=== PATIENT | male | born 2000 ===

== ENCOUNTER 2018-01-31 19:24 | Emergency (ER) | payer OTHER ==
[~2018-01-31] VITALS: Ht 167.6 cm; Wt 64.0 kg
[2018-01-31 19:26] VITALS: TEMP 36.5; Ht 167.6 cm; Wt 64.0 kg
--- NOTE | 2018-01-31 19:39 | EMERGENCY ROOM VISIT NOTE ---
History Report prepared by Ze: Rafael Leslie Under the Supervision of: Dr. Nicky Aguilar D.O. First contact with patient: 19:26 Chief Complaint: ALCOHOL OVERDOSE Stated Complaint: ALCOHOL History of Present Illness The patient is a 17 year old male who presents to the Emergency Room with complaints of persistent vomiting beginning [employer]. The nurse states the patient was out drinking since 1300. They report he was drinking vodka and was assisted home by friends. Friends are present at bedside, were directed to additional waiting room, but do state patient was with them while he was drinking, and they did not witness any trauma. Nursing staff notes the patient's roommates brought him to the ED because he could not walk, was coming in and out of consciousness, and vomiting. The patient states he has a mild headache and vomited three times. He denies headache, abdominal pain, trouble breathing, chest pain, blood in his vomit, falling down, and trauma. HPI limited secondary to the patient's alcohol intoxication. Source of History: patient, nursing staff History Limited By: intoxication Review of Systems ROS limited secondary to the patient's alcohol intoxication. Past Medical & Surgical PMHx unobtainable secondary to the patient's alcohol intoxication. Family History FHx unobtainable secondary to the patient's alcohol intoxication. Social History Smoking Status: Never Smoker Alcohol Use: heavy Marital Status: single Housing Status: lives with roommate Occupation Status: [employer] student Current/Historical Medications Unable to Obtain Active Prescriptions or Reported Meds Physical Exam Vital Signs Date Time Temp Pulse Resp B/P (MAP) Pulse Ox O2 Delivery O2 Flow Rate FiO2 01/31/18 22:35 115 24 119/77 100 01/31/18 21:40 97 22 01/31/18 21:30 108/69 01/31/18 21:10 65 17 97 Room Air 01/31/18 21:00 109/62 01/31/18 20:40 63 16 99 Room Air 01/31/18 20:35 66 18 99 Room Air 01/31/18 20:30 113/68 01/31/18 20:05 53 17 99 Room Air 01/31/18 20:00 112/68 01/31/18 19:54 52 18 99 Room Air 01/31/18 19:42 66 01/31/18 19:34 131/71 01/31/18 19:26 36.5 90 18 119/74 98 Room Air Physical Exam GENERAL: alert, intoxicated appearing, well nourished, emesis on shirt. Smells of EtOH. EYE EXAM: normal conjunctiva, PERRL and EOM's grossly intact OROPHARYNX: no exudate, no erythema, lips, buccal mucosa, and tongue normal and mucous membranes are moist NECK: supple, no nuchal rigidity, no adenopathy, non-tender LUNGS: Clear to auscultation. Normal chest wall mechanics HEART: no murmurs, S1 normal and S2 normal ABDOMEN: abdomen soft, non-tender, normo-active bowel sounds, no masses, no rebound or guarding. BACK: Back is symmetrical on inspection and there is no deformity, no midline tenderness, no CVA tenderness. SKIN: no rashes and no bruising UPPER EXTREMITIES: upper extremities are grossly normal. LOWER EXTREMITIES: No pitting edema. NEURO EXAM: Normal sensorium, cranial nerves II-XII grossly intact, normal speech, no gross weakness of arms, no gross weakness of legs. Medical Decision & Procedures Laboratory Results 01/31/18 19:38 Red Blood Count 4.87, Mean Corpuscular Volume 88.9, Mean Corpuscular Hemoglobin 30.8, Mean Corpuscular Hemoglobin Concent 34.6, Mean Platelet Volume 10.7, Neutrophils (%) (Auto) 71.3, Lymphocytes (%) (Auto) 20.9, Monocytes (%) (Auto) 5.5, Eosinophils (%) (Auto) 1.8, Basophils (%) (Auto) 0.4, Neutrophils # (Auto) 5.04, Lymphocytes # (Auto) 1.48, Monocytes # (Auto) 0.39, Eosinophils # (Auto) 0.13, Basophils # (Auto) 0.03 01/31/18 19:38 Test 01/31/18 19:38 White Blood Count 7.08 K/uL (4.8-10.8) Red Blood Count 4.87 M/uL (4.7-6.1) Hemoglobin 15.0 g/dL (14.0-18.0) Hematocrit 43.3 % (42-52) Mean Corpuscular Volume 88.9 fL (80-100) Mean Corpuscular Hemoglobin 30.8 pg (25-34) Mean Corpuscular Hemoglobin Concent 34.6 g/dl (32-36) Platelet Count 171 K/uL (130-400) Mean Platelet Volume 10.7 fL (7.4-10.4) Neutrophils (%) (Auto) 71.3 % Lymphocytes (%) (Auto) 20.9 % Monocytes (%) (Auto) 5.5 % Eosinophils (%) (Auto) 1.8 % Basophils (%) (Auto) 0.4 % Neutrophils # (Auto) 5.04 K/uL (1.4-6.5) Lymphocytes # (Auto) 1.48 K/uL (1.2-3.4) Monocytes # (Auto) 0.39 K/uL (0.11-0.59) Eosinophils # (Auto) 0.13 K/uL (0-0.5) Basophils # (Auto) 0.03 K/uL (0-0.2) RDW Standard Deviation 41.6 fL (36.4-46.3) RDW Coefficient of Variation 12.8 % (11.5-14.5) Immature Granulocyte % (Auto) 0.1 % Immature Granulocyte # (Auto) 0.01 K/uL (0.00-0.02) Anion Gap 10.0 mmol/L (3-11) Est Creatinine Clear Calc Drug Dose 110.5 ml/min Estimated GFR () 130.6 Estimated GFR (Non- 112.7 BUN/Creatinine Ratio 14.3 (10-20) Calcium Level 8.4 mg/dl (8.5-10.1) Total Bilirubin 1.5 mg/dl (0.2-1) Aspartate Amino Transf (AST/SGOT) 17 U/L (15-37) Alanine Aminotransferase (ALT/SGPT) 20 U/L (12-78) Alkaline Phosphatase 74 U/L (45-117) Total Protein 8.1 gm/dl (6.4-8.2) Albumin 4.3 gm/dl (3.4-5.0) Globulin 3.8 gm/dl (2.5-4.0) Albumin/Globulin Ratio 1.1 (0.9-2) Ethyl Alcohol mg/dL 261.0 mg/dl (0-3) Medications Administered Medications (Trade) Dose Ordered Sig/Jackeline Route Start Time Stop Time Status Last Admin Dose Admin Ondansetron HCl (Zofran Odt) 4 mg ONE ONCE PO 01/31/18 19:45 01/31/18 19:46 DC 01/31/18 19:40 4 MG ED Course 1927: The patient was evaluated in room C10. A complete history and physical exam was performed. 1944: Ordered Ondansetron HCl 4mg PO 2211: Upon reevaluation, the patient is feeling better. He is awake, alert, and trying to contact friends. Denies headaches, abdominal pain, chest pain, trouble breathing. States he is no longer nauseated, is tolerating sips of juice and crackers at bedside. I discussed the findings and the treatment plan with the patient. He verbalizes agreement and understanding. The patient will be discharged home if he can find a sober ride. Medical Decision Differential diagnosis includes etiologies such as alcohol intoxication, toxicologic, infection, hypoglycemia, electrolyte abnormalities, cardiac sources , intracerebral event, neurologic, as well as others were entertained. Medication Reconcilliation Current Medication List: was personally reviewed by me Blood Pressure Screening Patient's blood pressure: Normal blood pressure Blood pressure disposition: Did not require urgent referral Impression Primary Impression: Alcoholic intoxication Additional Impression: Vomiting Scribe Attestation The scribe's documentation has been prepared under my direction and personally reviewed by me in its entirety. I confirm that the note above accurately reflects all work, treatment, procedures, and medical decision making performed by me. Departure Information Dispostion Home / Self-Care Prescriptions Unable to Obtain Active Prescriptions or Reported Meds Forms HOME CARE DOCUMENTATION FORM, IMPORTANT VISIT INFORMATION Patient Instructions My [facility] Additional Instructions Please do not drink alcohol until you are legally able at age 21. When you do drink, please drink responsibly in a safe location. Do not drink and drive. Please sip clear liquids at frequent intervals to stay well-hydrated. If you have any new or concerning symptoms, please return the emergency room. Problem Qualifiers Primary Impression: Alcoholic intoxication Complication of substance-induced condition: uncomplicated Qualified Codes: F10.920 - Alcohol use, unspecified with intoxication, uncomplicated Additional Impression: Vomiting Vomiting type: unspecified Vomiting Intractability: non-intractable Nausea presence: with nausea Qualified Codes: R11.2 - Nausea with vomiting, unspecified
[2018-01-31] MEDS ORDERED: ONDANSETRON 4MG OD TAB PO ONE (19:45)
[2018-01-31 19:49] LABS: BASO % 0.4 %; BASO ABS # 0.03 K/uL (0-0.2); EOS % 1.8 %; EOS ABS # 0.13 K/uL (0-0.5); HEMATOCRIT 43.3 % (42-52); IG# 0.01 K/uL (0.00-0.02); LYMPH % 20.9 %; LYMPH ABS # 1.48 K/uL (1.2-3.4); MEAN CELL VOLUME 88.9 fL (80-100); MEAN CORPUSCULAR HEMOGLOBIN 30.8 pg (25-34); MEAN CORPUSCULAR HGB CONC 34.6 g/dl (32-36); MEAN PLATELET VOLUME 10.7 fL (7.4-10.4); MONO % 5.5 %; MONO ABS # 0.39 K/uL (0.11-0.59); NEUT % 71.3 %; NEUT ABS # 5.04 K/uL (1.4-6.5); PLATELET COUNT 171 K/uL (130-400); RED CELL DISTRIBUTION WIDTH CV 12.8 % (11.5-14.5); RED CELL DISTRIBUTION WIDTH SD 41.6 fL (36.4-46.3); WHITE BLOOD COUNT 7.08 K/uL (4.8-10.8)
[2018-01-31 20:10] LABS: ALBUMIN 4.3 gm/dl (3.4-5.0); CALCIUM 8.4 mg/dl (8.5-10.1); CREATININE 0.97 mg/dl (0.60-1.40); POTASSIUM 3.8 mmol/L (3.5-5.1); TOTAL PROTEIN 8.1 gm/dl (6.4-8.2)
[2018-01-31 22:35] VITALS: BP 119/77; PULSE 115; O2SAT 100
== END 2018-01-31 22:35 | disposition home or self-care (01) ==
LOC: C.EDB 19:25 → C.EDC 22:35
DX: F10.920 Alcohol use, unspecified with intoxication, uncomplicated (principal); R11.2 Nausea with vomiting, unspecified